=== PATIENT | male | born 1960 | race Caucasian/White ===

== ENCOUNTER → 2016-11-14 | Outpatient (CLI) | payer BC ==
[~2016-11-14] MED LIST: ASPI1TAB66 PO; FLAX100025 PO; IBUP200C9 PO
[2016-11-14 10:44] LABS: HEMATOCRIT 43.2 % (42-52); MEAN CELL VOLUME 94.3 fL (80-100); MEAN CORPUSCULAR HEMOGLOBIN 31.9 pg (25-34); MEAN CORPUSCULAR HGB CONC 33.8 g/dl (32-36); MEAN PLATELET VOLUME 9.9 fL (7.4-10.4); PLATELET COUNT 225 K/uL (130-400); RED BLOOD COUNT 4.58 M/uL (4.7-6.1); WHITE BLOOD COUNT 9.08 K/uL (4.8-10.8)
[2016-11-14 11:18] LABS: BLOOD UREA NITROGEN 19 mg/dl (7-18); BUN/CREATININE RATIO 19.4 (10-20); CALCIUM 8.8 mg/dl (8.5-10.1); CARBON DIOXIDE 29 mmol/L (21-32); CHLORIDE 108 mmol/L (98-107); GLUCOSE 98 mg/dl (70-99); POTASSIUM 4.5 mmol/L (3.5-5.1); SODIUM 141 mmol/L (136-145)
[2016-11-14 11:29] LABS: CHOLESTEROL 180 mg/dl (0-200); CHOLESTEROL/HDL RATIO 3.8; HDL CHOLESTEROL 48 mg/dl; LDL CHOLESTEROL CALCULATED 113 mg/dl; THYROID STIMULATING HORMONE 0.954 uIu/ml (0.300-4.500); TRIGLYCERIDES 97 mg/dl (0-150); VERY LOW DENSITY LIPOPROT CALC 19 mg/dl
== END | disposition home or self-care (01) ==
LOC: C.LAB1850 10:06
PROVIDERS: ATTEND Internal Medicine Cardiovascular Disease
DX: Z00.00 Encounter for general adult medical examination without abnormal findings (principal); Q23.1 Congenital insufficiency of aortic valve; R00.2 Palpitations; R07.89 Other chest pain

== ENCOUNTER → 2018-01-26 | Outpatient (CLI) | payer OTHER ==
[~2018-01-26] MED LIST changes: +IBUP1CAP30 PO; -IBUP200C9 PO
--- NOTE | 2018-01-26 15:59 | DIAGNOSTIC IMAGING REPORT ---
STERNUM MIN 2 VIEWS CLINICAL HISTORY: R07.89 Chest wall [id number] COMPARISON STUDY: No previous studies for comparison. FINDINGS: No sternal fractures are visualized on conventional radiographic imaging. No destructive lesions are identified IMPRESSION: Unremarkable conventional radiographic evaluation of the sternum Electronically signed by: Jc Hough M.D. 01/26/2018 3:58 PM Dictated Date/Time: 01/26/2018 3:57 PM
--- NOTE | 2018-01-26 16:00 | DIAGNOSTIC IMAGING REPORT ---
RIBS BILATERAL WITH PA CHEST (9 views) CLINICAL HISTORY: R07.89 Atypical chest painR07.89 Chest wall tenderness COMPARISON STUDY: No previous studies for comparison. FINDINGS: The erect chest reveals no pneumothorax. There is no focal pulmonary consolidation. No rib fractures are visualized. No destructive lesions are delineated. IMPRESSION: No active disease in the chest. No evidence of pneumothorax. No rib fractures identified. Electronically signed by: Jc Hough M.D. 01/26/2018 3:59 PM Dictated Date/Time: 01/26/2018 3:58 PM
[2018-01-26 17:11] LABS: BASO % 0.2 %; BASO ABS # 0.02 K/uL (0-0.2); EOS % 0.9 %; EOS ABS # 0.08 K/uL (0-0.5); HEMATOCRIT 45.8 % (42-52); HEMOGLOBIN 15.2 g/dL (14.0-18.0); IG# 0.04 K/uL (0.00-0.02); LYMPH % 28.3 %; LYMPH ABS # 2.63 K/uL (1.2-3.4); MEAN CORPUSCULAR HEMOGLOBIN 31.2 pg (25-34); MEAN CORPUSCULAR HGB CONC 33.2 g/dl (32-36); MEAN PLATELET VOLUME 10.1 fL (7.4-10.4); MONO % 10.8 %; NEUT % 59.4 %; NEUT ABS # 5.52 K/uL (1.4-6.5); PLATELET COUNT 284 K/uL (130-400); RED CELL DISTRIBUTION WIDTH CV 12.4 % (11.5-14.5); RED CELL DISTRIBUTION WIDTH SD 41.9 fL (36.4-46.3); WHITE BLOOD COUNT 9.29 K/uL (4.8-10.8)
[2018-01-26 17:22] LABS: ALBUMIN 3.8 gm/dl (3.4-5.0); ALT/SGPT 28 U/L (12-78); BLOOD UREA NITROGEN 21 mg/dl (7-18); CALCIUM 9.6 mg/dl (8.5-10.1); CARBON DIOXIDE 30 mmol/L (21-32); CHOLESTEROL 187 mg/dl (0-200); CREATININE 1.02 mg/dl (0.60-1.40); GLUCOSE 99 mg/dl (70-99); POTASSIUM 3.8 mmol/L (3.5-5.1); SODIUM 137 mmol/L (136-145)
[2018-01-26 17:25] LABS: ALKALINE PHOSPHATASE 70 U/L (45-117); AST/SGOT 35 U/L (15-37); LDL CHOLESTEROL CALCULATED 117 mg/dl; TOTAL PROTEIN 8.8 gm/dl (6.4-8.2)
== END | disposition home or self-care (01) ==
LOC: C.RADBC 15:10
PROVIDERS: ATTEND Nurse Practitioner Adult Health
DX: R07.89 Other chest pain (principal); M25.50 Pain in unspecified joint

== ENCOUNTER → 2018-02-04 | Outpatient (CLI) | payer OTHER ==
[2018-02-04 14:48] LABS: ALBUMIN 3.8 gm/dl (3.4-5.0); ALT/SGPT 28 U/L (12-78); BLOOD UREA NITROGEN 23 mg/dl (7-18); CALCIUM 9.3 mg/dl (8.5-10.1); CARBON DIOXIDE 28 mmol/L (21-32); CREATININE 0.96 mg/dl (0.60-1.40); GLUCOSE 98 mg/dl (70-99); POTASSIUM 4.1 mmol/L (3.5-5.1); SODIUM 138 mmol/L (136-145)
[2018-02-04 14:51] LABS: ALKALINE PHOSPHATASE 66 U/L (45-117); AST/SGOT 39 U/L (15-37); TOTAL PROTEIN 8.3 gm/dl (6.4-8.2)
[2018-02-09 12:17] LABS: ANA SCREEN TC 249X NEGATIVE (NEGATIVE)
== END | disposition home or self-care (01) ==
LOC: C.LABBC 11:59
PROVIDERS: ATTEND Nurse Practitioner Adult Health
DX: M25.50 Pain in unspecified joint (principal); R70.0 Elevated erythrocyte sedimentation rate

== ENCOUNTER → 2018-03-24 | Outpatient (CLI) | payer OTHER ==
[~2018-03-24] MED LIST changes: +OPTIRAY 320 IV PRN
--- NOTE | 2018-03-24 09:53 | DIAGNOSTIC IMAGING REPORT ---
CT OF THE CHEST WITH IV CONTRAST CLINICAL HISTORY: M25.50 Arthralgia of multiple [id number] Atypical chest painCTS COMPARISON STUDY: Chest x-ray dated 01/26/2018 TECHNIQUE: Following the IV administration of 92 mL of Optiray-320, CT of the thorax was performed from the thoracic inlet to the lung bases. Images are reviewed in the axial, sagittal, and coronal planes. IV contrast was administered without complication. A dose lowering technique was utilized adhering to the principles of ALARA. CT DOSE: 479.40 mGy.cm FINDINGS: Thyroid: Imaged portions of the thyroid gland are normal in appearance. Thoracic aorta: The thoracic aorta is normal in course and caliber, noting standard 3-vessel arch anatomy. No aneurysm or dissection is seen. Pulmonary vasculature: The pulmonary trunk is normal in caliber. There are no central filling defects identified to suggest pulmonary embolus. Note that this examination was not protocoled for the evaluation of pulmonary emboli. HEART: The heart is normal in size and configuration, without pericardial effusion. Lungs and pleural spaces: There are no pleural effusions. There is no pneumothorax. There is no focal pulmonary consolidation. Mediastinum: There is no mediastinal lymphadenopathy. Zahra: Clear. Axilla: Clear. Upper abdomen: There is mild hepatic steatosis. Skeletal structures: There are no lytic or blastic osseous lesions. Moderate arthritic changes are present at the sternomanubrial joint. There is bony sclerosis and subcortical erosive/cystic change. IMPRESSION: 1. No evidence of pathologic adenopathy 2. No evidence of focal pulmonary consolidation 3. 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 Hepatic steatosis Electronically signed by: Jc Hough M.D. 03/24/2018 9:52 AM Dictated Date/Time: 03/24/2018 8:33 AM
== END | disposition home or self-care (01) ==
LOC: C.CTS 08:16
PROVIDERS: ATTEND Nurse Practitioner Adult Health
DX: M25.50 Pain in unspecified joint (principal); R07.89 Other chest pain